=== PATIENT | female | born 2000 ===

== ENCOUNTER 2022-07-31 09:00 | Outpatient (RCR) | payer OTHER, SELFPAY ==
[2022-07-08 13:47] VITALS: BMI 22.4
[2022-07-08 14:00] VITALS: BP 110/80; PULSE 100; TEMP 36.9
[2022-07-08 15:23] LABS: Amphetamine Screen Urine Not Detected (Not Detect); Barbiturates, Urine Not Detected (Not Detect); Benzodiazepines Screen Urine Not Detected (Not Detect); Cannabinoid Screen Urine Not Detected (Not Detect); Cocaine Screen Urine Not Detected (Not Detect); Fentanyl, urine Not Detected (Not Detect); Opiate Screen Urine Not Detected (Not Detect); Phencyclidine Screen Urine Not Detected (Not Detect)
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
--- NOTE | 2022-07-11 15:56 | HO.PHPIOP ---
Case opened in treatment team.
--- NOTE | 2022-07-18 15:31 | HO.PHPPROGNO ---
Subjective Subjective Date of Service: 07/18/22 Reason For Visit: depression,anxiety,ADHD Medical Problems Affecting Mental Status: No Interim History: Continues with depressed mood, low energy. Vegetative symptoms continue. States some small improvement however, now able to do 1 task at home, such as folding laundry. Denies any SI, no safety concerns. Less anxious. Sleep/appetite no change. Finding groups helpful. Would like increased wellbutrin dose. Medication Compliance: Yes Side effects from medications: No Attending Groups: Yes Review of Systems Acute medical concerns: No Medical Review of Systems: unchanged Review of Systems Review of Systems Yes all other systems are reviewed and are negative Constitutional: Reports no additional constitutional complaints Mental Status Exam Mental Status Exam Narrative: NAD Patient Appearance: Well Grooomed and Appropriate Patient Orientation: Person, Place, Time and Situation Level of Consciousness: Appropriate Patient Behavior: Appropriate and Cooperative Mood Description: Depressed Affect Description: Depressed Patient Cognition Impaired: No Ability to Follow Directions: Excellent Speech Pattern: Clear and Appropriate Memory Description: Intact Hallucinations: None Delusions: Not Present Thought Process: Intact Thought Content: positive for Intact Depressive Symptoms: Sleeping More Than Usual, Loss of Int. in Activity, Increased Fatigue and Loss of Energy Judgement: Fair Diagnostics Vital Signs (24Hr): BMI result Body Mass Index 22.4 Assessment & Plan Assessment & Plan (1) Major depressive disorder, recurrent, moderate: Status: Acute Code(s): F33.1 - Major depressive disorder, recurrent, moderate Assessment and Plan: Continues with depressed mood, reports difficulty with motivation, lack of energy, vegetative symptoms. No SI, no safety concerns. We discussed TMS, as patient was provided with information pamphlet last week. Also discussed possibility of increasing Wellbutrin at this time, in order to address troublesome symptoms. She states she prefers to try increase of medication before considering another treatment. (2) Generalized anxiety disorder: Status: Acute Code(s): F41.1 - Generalized anxiety disorder Plan 1. Continue with current [facility] plan of care. 2. Increase Wellbutrin SR from 150 mg to 200 mg daily. 3. Follow-up as per protocol. Patient educated on: diagnosis, medication risk/benefits and therapeutic strategies Informed Consent: understands Reason for contiued partial hosp. stay Substantial Risk for: inability to function and rapid decompensation Certification I certify that partial hospital treatment is medically necessary due to the symptoms and problems resulting from the patient's mental illness and the failure to treat the patient at the partial hospital level of care would likely result in the patient requiring inpatient psychiatric care which could not be prevented at a less intensive level of care. I spent minutes with the patient and/or on the patient floor today, greater than?50% of which was spent counseling/coordinating care. Discharge Plan Discharge Attending provider: Gagandeep Castaneda Medications: New bupropion HCl 200 mg tablet sustained-release 12 hr 200 mg PO DAILY Qty: 7 0RF Discontinued bupropion HCl [Wellbutrin SR] 150 mg Tablet Sustained-Release 12 Hr 150 mg PO DAILY No Action clonidine HCl 0.1 mg Tablet 0.3 mg PO BEDTIME Rx Instructions: Take 3 tabs at bedtime. venlafaxine [Effexor XR] 150 mg Capsule,Extended Release 24hr 150 mg PO DAILY lamotrigine [Lamictal] 100 mg Tablet 100 mg PO DAILY melatonin 3 mg Tablet 3 mg PO BEDTIME PRN (Reason: Insomnia) methylphenidate HCl 30 mg capsule, ER biphasic 30-70 1 cap PO DAILY PRN (Reason: ADHD) Stand Alone Forms: Patient Portal Discharge page
--- NOTE | 2022-07-24 15:11 | HO.PHPPROGNO ---
Subjective Subjective Date of Service: 07/24/22 Reason For Visit: depression,anxiety,ADHD Medical Problems Affecting Mental Status: No Interim History: Describes mood today as ?not good?. Continues with depressed, anxious mood an affect. Does not feel increased Wellbutrin dose is helping. Reports does not feel ready to discharge at this time. Expressed concern regarding not feeling ready, lack of structure upon leaving. No SI, no safety concerns. Finding groups helpful, would like to remain in order to work on planning daily structure upon discharge. Has been practicing coping skills learned in group, would like to continue focusing on learning new skills, practicing them Medication Compliance: Yes Side effects from medications: No Attending Groups: Yes Review of Systems Acute medical concerns: No Medical Review of Systems: unchanged Review of Systems Review of Systems Yes all other systems are reviewed and are negative Constitutional: Reports no additional constitutional complaints Mental Status Exam Mental Status Exam Narrative: NAD Patient Appearance: Well Grooomed and Appropriate Patient Orientation: Person, Place, Time and Situation Level of Consciousness: Appropriate Patient Behavior: Appropriate, Cooperative and Anxious Mood Description: Depressed and Anxious Affect Description: Depressed and Anxious (Tearful at times.) Patient Cognition Impaired: No Ability to Follow Directions: Excellent Speech Pattern: Clear and Appropriate Memory Description: Intact Hallucinations: None Delusions: Not Present Thought Process: Intact Thought Content: positive for Intact Depressive Symptoms: Increased Anxiety, Sleeping More Than Usual, Loss of Int. in Activity, Increased Fatigue and Loss of Energy Judgement: Fair Diagnostics Vital Signs (24Hr): BMI result Body Mass Index 22.4 Assessment & Plan Assessment & Plan (1) Major depressive disorder, recurrent, moderate: Status: Acute Code(s): F33.1 - Major depressive disorder, recurrent, moderate Assessment and Plan: Describes mood today as ?not good?. Continues with depressed, anxious mood and affect. Does not feel increased Wellbutrin dose is helping. Discussed medication options, including increasing dose of Wellbutrin, or splitting it into twice daily dosing. Reports does not feel ready to discharge at this time. Would like to remain if possible at all. Feels she is making progress in program. Expressed concern regarding not feeling ready, lack of structure upon leaving. No SI, no safety concerns. Finding groups helpful, would like to remain in order to work on planning daily structure upon discharge. Has been practicing coping skills learned in group, would like to continue focusing on learning new skills, practicing them (2) Generalized anxiety disorder: Status: Acute Code(s): F41.1 - Generalized anxiety disorder Assessment and Plan: Has had increase anxiety past several days. Reports it mostly is related to expected discharge from program, as she does not feel ready. (3) ADHD: Status: Acute Code(s): F90.9 - Attention-deficit hyperactivity disorder, unspecified type Assessment and Plan: Adequately managed with current medication. Plan 1. Patient was expected to discharge from program today. However, clinician has been able to obtain insurance approval for IOP level of care at this time. 2. Continue with current medication regimen at this time. 3. Follow-up with patient as per protocol. Patient educated on: diagnosis, medication risk/benefits and therapeutic strategies Informed Consent: understands Reason for contiued partial hosp. stay Substantial Risk for: inability to function and rapid decompensation Certification I certify that partial hospital treatment is medically necessary due to the symptoms and problems resulting from the patient's mental illness and the failure to treat the patient at the partial hospital level of care would likely result in the patient requiring inpatient psychiatric care which could not be prevented at a less intensive level of care. I spent minutes with the patient and/or on the patient floor today, greater than?50% of which was spent counseling/coordinating care. Discharge Plan Discharge Attending provider: Gagandeep Castaneda Medications: New bupropion HCl 200 mg tablet sustained-release 12 hr 200 mg PO DAILY Qty: 7 0RF Discontinued bupropion HCl [Wellbutrin SR] 150 mg Tablet Sustained-Release 12 Hr 150 mg PO DAILY No Action clonidine HCl 0.1 mg Tablet 0.3 mg PO BEDTIME Rx Instructions: Take 3 tabs at bedtime. venlafaxine [Effexor XR] 150 mg Capsule,Extended Release 24hr 150 mg PO DAILY lamotrigine [Lamictal] 100 mg Tablet 100 mg PO DAILY melatonin 3 mg Tablet 3 mg PO BEDTIME PRN (Reason: Insomnia) methylphenidate HCl 30 mg capsule, ER biphasic 30-70 1 cap PO DAILY PRN (Reason: ADHD) Stand Alone Forms: Patient Portal Discharge page Patient Education: Depression (DC), Generalized Anxiety Disorder (GEN)
--- NOTE | 2022-07-31 16:10 | HO.PHPIOP ---
I met with pt and reviewed treatment plan. We discussed schedule and a tentative end date of 07/23/22. Pt reported a sense of benefit from PHP so far, and reported a particular need to address low motivation and poor self esteem.
--- NOTE | 2022-07-31 20:31 | P.PNPSP_ITS ---
Subjective Subjective Date of Service: 07/31/22 Reason For Visit: depression,anxiety,ADHD Interim History: Patient presents for follow up on last day of PHP Reviewed discharge paperwork with patient Patient reports feeling ready to be done, and has found program helpful. No refills needed at this time Has outpatient providers in place--needs to schedule follow up appts. No questions or concerns reported Review of Systems Constitutional: Reports as per HPI and Reports no additional constitutional complaints Mental Status Exam Mental Status Exam Patient Appearance: Well Grooomed and Appropriate Level of Consciousness: Awake and Appropriate Patient Behavior: Appropriate and Cooperative Mood Description: Calm and Happy Affect Description: Cheerful Speech Pattern: Clear Thought Process: Intact Thought Content: positive for Goal Oriented Diagnostics Vital Signs (24Hr): BMI result Body Mass Index 22.4 Assessment & Plan Assessment & Plan (1) Major depressive disorder, recurrent, moderate: Status: Acute Code(s): F33.1 - Major depressive disorder, recurrent, moderate Assessment and Plan: * stable for discharge (2) Generalized anxiety disorder: Status: Acute Code(s): F41.1 - Generalized anxiety disorder Certification I certify that partial hospital treatment is medically necessary due to the symptoms and problems resulting from the patient's mental illness and the failure to treat the patient at the partial hospital level of care would likely result in the patient requiring inpatient psychiatric care which could not be prevented at a less intensive level of care. I spent minutes with the patient and/or on the patient floor today, greater than?50% of which was spent counseling/coordinating care. Discharge Plan Discharge Attending provider: Gagandeep Castaneda Additional Instructions: Appointment with therapist SINCERE Montoya on Friday08/06/12 at 10am. Appointment with med provider Carol Gross MD on 08/14/22 at 3pm. Pt was provided information for TMS treatment, and reports a desire to further research this. Medications: New bupropion HCl 200 mg tablet sustained-release 12 hr 200 mg PO DAILY Qty: 7 0RF Discontinued bupropion HCl [Wellbutrin SR] 150 mg Tablet Sustained-Release 12 Hr 150 mg PO DAILY No Action clonidine HCl 0.1 mg Tablet 0.3 mg PO BEDTIME Rx Instructions: Take 3 tabs at bedtime. venlafaxine [Effexor XR] 150 mg Capsule,Extended Release 24hr 150 mg PO DAILY lamotrigine [Lamictal] 100 mg Tablet 100 mg PO DAILY melatonin 3 mg Tablet 3 mg PO BEDTIME PRN (Reason: Insomnia) methylphenidate HCl 30 mg capsule, ER biphasic 30-70 1 cap PO DAILY PRN (Reason: ADHD) Stand Alone Forms: Patient Portal Discharge page Patient Education: Depression (DC), Depression (GEN), Generalized Anxiety Disorder (GEN), Anxiety (GEN)
== END 2022-07-31 23:59 | disposition home or self-care (01) ==
LOC: HO.PHPA 09:00
PROVIDERS: Nurse Practitioner Psychiatric/Mental Health; Visit Provider Psychiatry & Neurology Psychiatry
DX: F33.1 Major depressive disorder, recurrent, moderate (principal); F41.1 Generalized anxiety disorder; F90.9 Attention-deficit hyperactivity disorder, unspecified type; Z79.899 Other long term (current) drug therapy
CPT/HCPCS: 80307; 90792; 90853